=== PATIENT | female | born 1970 | race Caucasian/White ===

== ENCOUNTER 2018-09-05 09:33 | Day surgery (SDC) | payer OTHER ==
[~2018-09-05 09:33] MED LIST: LIDOCAINE 2% (SDV) 5 ML INJ; PROPOFOL 200 MG INJ
[2018-09-05] MEDS ORDERED: hydrALAzine 20 MG INJ IV (12:30)
[2018-09-05] MEDS ORDERED: EPHEDrine SULFATE 50 MG/5 ML SYG IV (12:30)
[2018-09-05] MEDS ORDERED: DIPHENHYDRAMINE 50 MG INJ IV (12:30)
[2018-09-05] MEDS ORDERED: FENTAnyl 50 MCG/ML VIAL IV ×2 (12:30)
[2018-09-05] MEDS ORDERED: ONDANSETRON 4 MG INJ IV (12:30)
[2018-09-05] MEDS ORDERED: LABETALOL HCL 20MG INJ IV (12:30)
== END 2018-09-05 16:24 | disposition home or self-care (01) ==
LOC: GIL 09:33
DX: Z12.11 Encounter for screening for malignant neoplasm of colon (principal); K64.8 Other hemorrhoids; I10 Essential (primary) hypertension; J45.909 Unspecified asthma, uncomplicated
CPT/HCPCS: 45378; 88305